=== PATIENT | female | born 1965 | race Caucasian/White ===

== ENCOUNTER 2022-04-17 14:52 | Emergency (ER) | payer SELFPAY ==
[~2022-04-17] VITALS: Ht 167.6 cm; Wt 65.8 kg
[2022-04-17 14:58] VITALS: BP 138/78
[2022-04-17] MEDS ORDERED: IBUPROFEN 600 MG TAB PO ONE (16:00)
[2022-04-17] MEDS ORDERED: IBUP-2213 PO (18:40)
== END 2022-04-17 15:50 | disposition home or self-care (01) ==
LOC: MED 14:52
DX: S93.402A Sprain of unspecified ligament of left ankle, initial encounter (principal); S83.91XA Sprain of unspecified site of right knee, initial encounter; W01.0XXA Fall on same level from slipping, tripping and stumbling without subsequent striking against object, initial encounter; Y93.89 Activity, other specified; Y92.89 Other specified places as the place of occurrence of the external cause; Y99.8 Other external cause status
CPT/HCPCS: 73562; 73610; 99284